=== PATIENT | male | born 2000 | race Caucasian/White ===

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

== ENCOUNTER 2021-09-17 07:57 | Emergency (ER) | payer OTHER ==
[2021-09-17 08:03] VITALS: RESP 18; TEMP 98.2
[2021-09-17] MEDS ORDERED: HYDROcodone/APAP 5-325MG 1 EACH TAB PO STA (08:13)
--- NOTE | 2021-09-17 09:11 | XR ---
EXAMINATION TYPE: XR Hip Complete LT DATE OF EXAM: 09/17/2021 COMPARISON: NONE HISTORY: pain TECHNIQUE: 2 views submitted FINDINGS: There is no evidence of erosive change or acute fracture. IMPRESSION: 1. No evidence of acute fracture or dislocation.
--- NOTE | 2021-09-17 09:12 | XR ---
EXAM TYPE: LUMBAR SPINE X RAY SERIES COMPARISON: NONE HISTORY: Pain TECHNIQUE: 4 views are submitted. FINDINGS: Alignment is anatomic. The pedicles are intact. The transverse processes are intact. There is no s pondylolysis or spondylolisthesis. Sclerosis involving the SI joint. IMPRESSION: 1. Correlate for bilateral sacroiliitis.
[2021-09-17] MEDS ORDERED: ACET/COD 300 MG/30 MG STARTER PACK 6 TAB BTL PO STA (09:25)
--- NOTE | 2021-09-17 09:25 | ED ---
Extremity Problem HPI - General Chief complaint: Extremity Problem,Nontraumatic Stated complaint: hip pain Time Seen by Provider: 09/17/21 08:04 Source: patient, RN notes reviewed Mode of arrival: ambulatory Limitations: no limitations - History of Present Illness Initial comments: 20-year-old male presents emergency Department chief complaint of left leg pain, left hip and back pain. Patient states that he does have history of sciatica. Patient states that he schedule have x-rays were completed. Patient states she's been having increasing pain rating down his left leg from his left hip. He denies any bowel, bladder incontinence or retentionthat last seizures or paresthesias. Patient states her movements, certain positions make the pain better or worse. Patient denies any dysuria. Patient denies abdominal pain no other complaints. - Related Data Previous Rx's Medication Instructions Recorded Cephalexin [Keflex] 500 mg PO Q6HR #28 cap 08/26/17 Ibuprofen [Motrin] 600 mg PO Q8HR PRN #20 tab 09/17/21 methocarbamoL [Robaxin] 500 mg PO TID PRN #15 tab 09/17/21 predniSONE 50 mg PO DAILY #5 tab 09/17/21 Allergies Allergy/AdvReac Type Severity Reaction Status Date / Time Penicillins Allergy Unknown Verified 09/17/21 07:59 Childhood Review of Systems ROS Statement: Those systems with pertinent positive or pertinent negative responses have been documented in the HPI. ROS Other: All systems not noted in ROS Statement are negative. Past Medical History Past Medical History: No Reported History History of Any Multi-Drug Resistant Organisms: None Reported Additional Past Surgical History / Comment(s): left ear cyst Past Psychological History: No Psychological Hx Reported Smoking Status: Vaper Past Alcohol Use History: Occasional Past Drug Use History: Marijuana General Exam Limitations: no limitations General appearance: alert, in no apparent distress Head exam: Present: atraumatic, normocephalic, normal inspection Eye exam: Present: normal appearance, PERRL, EOMI. Absent: scleral icterus, conjunctival injection, periorbital swelling Neck exam: Present: normal inspection, full ROM. Absent: tenderness, meningismus, lymphadenopathy Respiratory exam: Present: normal lung sounds bilaterally. Absent: respiratory distress, wheezes, rales, rhonchi, stridor Cardiovascular Exam: Present: regular rate, normal rhythm, normal heart sounds. Absent: systolic murmur, diastolic murmur, rubs, gallop, clicks GI/Abdominal exam: Present: soft, normal bowel sounds. Absent: distended, tenderness, guarding, rebound, rigid Extremities exam: Present: other (Or stridor pulses equal bilaterally, neurovascular intact equal clinical warmth there is mild discomfort with left leg range of motion, no localized tenderness.) Back exam: Present: full ROM, tenderness, paraspinal tenderness. Absent: vertebral tenderness Neurological exam: Present: alert, oriented X3 Skin exam: Present: warm, dry, intact, normal color. Absent: rash Course Vital Signs 09/17/21 08:00 Temperature 98.2 F Pulse Rate 86 Respiratory 18 Rate Blood Pressure 156/79 O2 Sat by Pulse 98 Oximetry Medical Decision Making - Medical Decision Making X-ray of the bar spine, hips were performed there is question of sclerosis of the SI joints, possible sacroiliitis. Patient has no red flag symptoms. Patient discharged in stable condition with follow-up with orthopedics return parameters were discussed. Disposition Clinical Impression: Lumbar radiculopathy, acute, Sacroiliitis Disposition: HOME SELF-CARE Condition: Stable Instructions (If sedation given, give patient instructions): Lumbar Radiculopathy (ED) Additional Instructions: Please return to the Emergency Department if symptoms worsen or any other concerns. Prescriptions: Ibuprofen [Motrin] 600 mg PO Q8HR PRN #20 tab PRN Reason: Pain predniSONE 50 mg PO DAILY #5 tab methocarbamoL [Robaxin] 500 mg PO TID PRN #15 tab PRN Reason: muscle spasms Is patient prescribed a controlled substance at d/c from ED?: No Referrals: None,Stated [Primary Care Provider] - 1-2 days Time of Disposition: 09:23
[2021-09-17 10:19] VITALS: BP 132/78; PULSE 81
== END 2021-09-17 10:12 | disposition home or self-care (01) ==
LOC: EC 07:57
DX: M54.16 Radiculopathy, lumbar region (principal); M46.1 Sacroiliitis, not elsewhere classified; Z72.89 Other problems related to lifestyle; Z88.0 Allergy status to penicillin; F17.290 Nicotine dependence, other tobacco product, uncomplicated; F12.90 Cannabis use, unspecified, uncomplicated
CPT/HCPCS: 72110; 73502; 99283